=== PATIENT | male | born 1950 | race Caucasian/White ===

== ENCOUNTER 2017-03-04 07:41 | Emergency (ER) | payer MEDICARE, BC ==
[2017-03-04] MEDS ORDERED: Ketorolac 30 MG/ML SDV IVPUSH ONE (08:21)
--- NOTE | 2017-03-04 08:21 | EDM.PDOC ---
ED HPI GENERAL MEDICAL PROBLEM - General Chief Complaint: Back Pain or Injury Stated Complaint: BACK PAIN Time Seen by Provider: 03/04/17 08:15 Source of Information: Reports: Patient History Limitations: Reports: No Limitations - History of Present Illness INITIAL COMMENTS - FREE TEXT/NARRATIVE: This 66 yo male patient reports to the ED with mid back pain. The patient reports his pain started 2 days ago, but got much worse over the past 12 hours. The patient reports he has taken Aleve this morning with little to no relief. The patient reports he has been told that he has a bad vertebra in the past, but has not had anything done with it. The patient reports he lifts heavy objects at work and is required to bend over frequently which has increased the pain. 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 Middle Back Pain Score (Numeric/FACES): 10 - Related Data Allergies Allergy/AdvReac Type Severity Reaction Status Date / Time No Known Allergies Allergy Verified 04/17/16 12:25 Home Meds: Home Meds Calcium Carbonate/Vitamin D3 [Calcium 600-Vit D3 500 Softgel] 1 cap PO DAILY [History] Metoprolol Succinate 50 mg PO DAILY 06/11/16 [History] Potassium Chloride 10 meq PO DAILY 06/11/16 [History] Triamterene/Hydrochlorothiazid [Triamterene-HCTZ 37.5-25 MG] 1 cap PO DAILY [History] Past Medical History HEENT History: Reports: Other (See Below) Other HEENT History: hx facial abscess Cardiovascular History: Reports: Hypertension Musculoskeletal History: Reports: Other (See Below) Other Musculoskeletal History: hx "bad vertebra" - Past Surgical History HEENT Surgical History: Reports: Other (See Below) Other HEENT Surgeries/Procedures: surgery for facial abscess june 2016 Social & Family History - Family History Family Medical History: Noncontributory - Tobacco Use Smoking Status *Q: Current Every Day Smoker Years of Tobacco use: 45 Packs/Tins Daily: 1 Used Tobacco, but Quit: No - Caffeine Use Caffeine Use: Reports: Coffee - Recreational Drug Use Recreational Drug Use: Yes Drug Use in Last 12 Months: Yes Recreational Drug Type: Reports: Marijuana/Hashish Recreational Drug Use Frequency: Weekly Recreational Drug Last Use: t-3 ED ROS GENERAL - Review of Systems Review Of Systems: ROS reveals no pertinent complaints other than HPI. ED EXAM,LOWER BACK PAIN/INJURY - Physical Exam Exam: See Below Exam Limited By: No Limitations General Appearance: Alert, WD/WN, Severe Distress Eye Exam: Bilateral Eye: EOMI, Normal Inspection Ears: Normal External Exam, Normal Canal, Hearing Grossly Normal, Normal TMs Nose: Normal Inspection, Normal Mucosa, No Blood Throat/Mouth: Normal Inspection, Normal Lips, Normal Teeth, Normal Gums, Normal Oropharynx, Normal Voice, No Airway Compromise Head: Atraumatic, Normocephalic Neck: Normal Inspection, Supple, Non-Tender, Full Range of Motion Respiratory/Chest: No Respiratory Distress, Lungs Clear, Normal Breath Sounds, No Accessory Muscle Use, Chest Non-Tender Cardiovascular: Normal Peripheral Pulses, Regular Rate, Rhythm, No Edema, No Gallop, No JVD, No Murmur, No Rub GI/Abdominal: Normal Bowel Sounds, Soft, Non-Tender, No Organomegaly, No Distention, No Abnormal Bruit, No Mass (Male) Exam: Deferred Rectal (Males) Exam: Deferred Back Exam: Normal Inspection, Full Range of Motion, NT Extremities: Normal Inspection, Normal Range of Motion, Non-Tender, No Pedal Edema, Normal Capillary Refill Neurological: Alert, Normal Mood/Affect, Normal Dorsiflexion, CN II-XII Intact, Normal Plantar Flexion, Normal Gait, Normal Reflexes, No Motor/Sensory Deficits , Oriented x 3 Psychiatric: Normal Affect, Normal Mood Skin Exam: Warm, Dry, Intact, Normal Color, No Rash Lymphatic: No Adenopathy Course - Vital Signs Last Recorded V/S: Last Vital Signs Temp 36.6 C 03/04/17 07:59 Pulse 62 03/04/17 07:59 Resp 16 03/04/17 07:59 BP 181/82 H 03/04/17 07:59 Pulse Ox 99 03/04/17 07:59 - Orders/Labs/Meds Orders: Active Orders 24 hr Category Date Time Status Orphenadrine [Norflex] Med 03/04/17 08:30 Active 60 mg IM Q12H Medication Orders Orphenadrine Citrate (Norflex) 60 mg IM Q12H TOO Last Admin: 03/04/17 08:29 Dose: 60 mg Meds: Medications Generic Name Dose Route Start Last Admin Trade Name Rubin PRN Reason Stop Dose Admin Orphenadrine Citrate 60 mg 03/04/17 08:30 03/04/17 08:29 Norflex IM 60 mg Q12H TOO Administration Discontinued Medications Generic Name Dose Route Start Last Admin Trade Name Rubin PRN Reason Stop Dose Admin Hydromorphone HCl 0.5 mg 03/04/17 08:45 03/04/17 08:56 Dilaudid IVPUSH 03/04/17 08:46 0.5 mg ONETIME ONE Administration Hydromorphone HCl 0.5 mg 03/04/17 09:08 Dilaudid IVPUSH 03/04/17 09:09 ONETIME ONE Ketorolac Tromethamine 30 mg 03/04/17 08:21 03/04/17 08:31 Toradol IVPUSH 03/04/17 08:22 30 mg ONETIME ONE Administration Departure - Departure Time of Disposition: 09:30 Disposition: Home, Self-Care 01 Condition: Fair Clinical Impression: Non-traumatic compression fracture of T6 thoracic vertebra Qualifiers: Encounter type: initial encounter Qualified Code(s): M48.54XA - Collapsed vertebra, not elsewhere classified, thoracic region, initial encounter for fracture - Discharge Information Instructions: Spinal Compression Fracture Forms: ED Department Discharge Care Plan Goals: The patient was advised of the examination and x-ray results during the visit. The patient was given an IV dose of Toradol, 2 IV doses of Dilaudid and an IM dose of Norflex while in the ED. The patient was discharged with a script for [place] (10/325) #16 to take 1 by mouth every 6 hours as needed for pain. The patient should follow-up with his primary care facility in the next couple of days for continued evaluation and management. If the patient has any additional symptoms or concerns, the patient should visit his primary care facility or return to the emergency department. - My Orders Last 24 Hours: My Active Orders 03/04/17 08:30 Orphenadrine [Norflex] 60 mg IM Q12H - Assessment/Plan Last 24 Hours: My Active Orders 03/04/17 08:30 Orphenadrine [Norflex] 60 mg IM Q12H
[2017-03-04] MEDS ORDERED: HYDROmorphone 1 MG/ML Syringe IVPUSH ONE ×2 (08:45→09:08)
[2017-03-04 09:30] VITALS: BP 168/80
== END 2017-03-04 09:54 | disposition home or self-care (01) ==
LOC: DL.ED 07:41
DX: M48.54XA Collapsed vertebra, not elsewhere classified, thoracic region, initial encounter for fracture (principal); I10 Essential (primary) hypertension; F17.210 Nicotine dependence, cigarettes, uncomplicated; Z79.899 Other long term (current) drug therapy
CPT/HCPCS: 72070; 72100; 96372; 96374; 96375; 99283; J1170; J1885; J2360

== ENCOUNTER 2017-05-30 14:46 | Emergency (ER) | payer MEDICARE, BC ==
[2017-05-30 15:32] VITALS: BP 129/74
[2017-05-30] MEDS ORDERED: Oxymetazoline 0.05% Nasal Spray 15 ML Bottle NAS ONE (15:43)
--- NOTE | 2017-05-30 15:52 | EDM.PDOC ---
ED HPI GENERAL MEDICAL PROBLEM - General Chief Complaint: ENT Problem Stated Complaint: NOSE BLEEDS GRICELDA PHILLIPS, [id number] Time Seen by Provider: 05/30/17 15:40 Source of Information: Reports: Patient History Limitations: Reports: No Limitations - History of Present Illness INITIAL COMMENTS - FREE TEXT/NARRATIVE: This 66 yo male patient reports to the ED with a nose bleed. The patient report this is his 3rd day of frequent nose bleeds. The patient reports the bleeding stopped just prior to coming to the ED. The patient reports he has been blowing his nose and had clots of blood come out. The patient reports his house is very dry. Onset Date: 05/28/17 Duration: Intermittent Location: Reports: Face Quality: Reports: Dull Severity: Mild Improves with: Reports: None Worsens with: Reports: None Associated Symptoms: Reports: No Other Symptoms Back Pain Score (Numeric/FACES): 3 - Related Data Allergies Allergy/AdvReac Type Severity Reaction Status Date / Time No Known Allergies Allergy Verified 04/17/16 12:25 Home Meds: Home Meds Calcium Carbonate/Vitamin D3 [Calcium 600-Vit D3 500 Softgel] 1 cap PO DAILY [History] Metoprolol Succinate 50 mg PO DAILY 06/11/16 [History] Potassium Chloride 10 meq PO DAILY 06/11/16 [History] Triamterene/Hydrochlorothiazid [Triamterene-HCTZ 37.5-25 MG] 1 cap PO DAILY [History] Aspirin [Ecotrin] 81 mg PO DAILY 05/30/17 [History] Multivitamin [Multivitamins] 1 tab PO DAILY 05/30/17 [History] atorvaSTATin [Lipitor] 05/30/17 [History] oxyCODONE 5 mg PO Q6H 05/30/17 [History] Past Medical History HEENT History: Reports: Other (See Below) Other HEENT History: hx facial abscess Cardiovascular History: Reports: Hypertension Musculoskeletal History: Reports: Other (See Below) Other Musculoskeletal History: hx "bad vertebra" - Past Surgical History HEENT Surgical History: Reports: Other (See Below) Other HEENT Surgeries/Procedures: surgery for facial abscess june 2016 Social & Family History - Family History Family Medical History: Noncontributory - Tobacco Use Smoking Status *Q: Current Every Day Smoker Years of Tobacco use: 45 Packs/Tins Daily: 1 Used Tobacco, but Quit: No - Caffeine Use Caffeine Use: Reports: Coffee - Recreational Drug Use Recreational Drug Use: Yes Drug Use in Last 12 Months: Yes Recreational Drug Type: Reports: Marijuana/Hashish Recreational Drug Use Frequency: Weekly Recreational Drug Last Use: t-3 ED ROS ENT - Review of Systems Review Of Systems: ROS reveals no pertinent complaints other than HPI. ED EXAM, ENT - Physical Exam Exam: See Below Exam Limited By: No Limitations General Appearance: Alert, WD/WN, No Apparent Distress Eye Exam: Bilateral Eye: EOMI, Normal Inspection, PERRL Ears: Normal External Exam, Normal Canal, Hearing Grossly Normal, Normal TMs Nose: Normal Inspection, Normal Mucousa, Dried Blood, Other (no active bleeding) Mouth/Throat: Normal Inspection, Normal Gums, Normal Lips, Normal Oropharynx, Normal Teeth Head: Atraumatic, Normocephalic Neck: Normal Inspection, Supple, Non-Tender, Full Range of Motion Respiratory/Chest: No Respiratory Distress, Lungs Clear, Normal Breath Sounds, No Accessory Muscle Use, Chest Non-Tender Cardiovascular: Normal Peripheral Pulses, Regular Rate, Rhythm, No Edema, No Gallop, No JVD, No Murmur, No Rub GI/Abdominal: Normal Bowel Sounds, Soft, Non-Tender, No Organomegaly, No Distention, No Abnormal Bruit, No Mass (Male) Exam: Deferred Rectal (Males) Exam: Deferred Back: Normal Inspection, Full Range of Motion Extremities: Normal Inspection, Normal Range of Motion, Non-Tender, No Pedal Edema, Normal Capillary Refill Neurological: Alert, Oriented, CN II-XII Intact, Normal Cognition, Normal Gait, Normal Reflexes, No Motor/Sensory Deficits Psychiatric: Normal Affect, Normal Mood Skin: Warm, Dry, Intact, Normal Color, No Rash Lymphatic: No Adenopathy Course - Vital Signs Last Recorded V/S: Last Vital Signs Temp 36.4 C 05/30/17 15:31 Pulse 64 05/30/17 15:31 Resp 16 05/30/17 15:31 BP 129/74 05/30/17 15:31 Pulse Ox 99 05/30/17 15:31 - Orders/Labs/Meds Orders: Active Orders 24 hr Category Date Time Status Oxymetazoline [Afrin Original 0.05% Nasal Norris] Med 05/30/17 15:43 Once 1 ml MIKE ONETIME ONE Medication Orders Oxymetazoline HCl (Afrin Original 0.05% Nasal Norris) 1 ml MIKE ONETIME ONE Stop: 05/30/17 15:44 Meds: Medications Generic Name Dose Route Start Last Admin Trade Name Rubin PRN Reason Stop Dose Admin Oxymetazoline HCl 1 ml 05/30/17 15:43 Afrin Original 0.05% Nasal Norris MIKE 05/30/17 15:44 ONETIME ONE Departure - Departure Time of Disposition: 15:49 Disposition: Home, Self-Care 01 Condition: Fair Clinical Impression: Epistaxis - Discharge Information Instructions: Nosebleed, [id number] Referrals: Amaya Franco PA [Primary Care Provider] - Care Plan Goals: The patient was advised of the examination results during the visit. The patient was given 2 sprays of Afrin in each nostril while in the ED. The patient was sent home with the bottle and instructed to use 2 sprays in each nostril 3 times per day as needed. The patient was also encouraged to use a humidifier as well as place a small amount of Aquaphor on a Q-tip 2 times a day applied to each internal nostril. If the patient has any additional symptoms or concerns, the patient should follow-up with his primary care facility or return to the ED. - My Orders Last 24 Hours: My Active Orders 05/30/17 15:43 Oxymetazoline [Afrin Original 0.05% Nasal Norris] 1 ml MIKE ONETIME ONE - Assessment/Plan Last 24 Hours: My Active Orders 05/30/17 15:43 Oxymetazoline [Afrin Original 0.05% Nasal Norris] 1 ml MIKE ONETIME ONE
== END 2017-05-30 15:59 | disposition home or self-care (01) ==
LOC: DL.ED 14:46
DX: R04.0 Epistaxis (principal); F17.210 Nicotine dependence, cigarettes, uncomplicated; I10 Essential (primary) hypertension; Z79.82 Long term (current) use of aspirin; Z79.899 Other long term (current) drug therapy
CPT/HCPCS: 99283; A9270; 99282

== ENCOUNTER 2020-10-19 06:17 | Day surgery (SDC) | payer MEDICARE, BC ==
[~2020-10-19 06:17] MED LIST: Dextrose 5%-0.45% NaCl 1,000 ML IV SCH; Midazolam 1 MG/ML 2 ML SDV ONE; Sodium Chloride 0.9% 10 ML Syringe FLUSH PRN; fentaNYL 100 MCG/2 ML SDV ONE
[2020-10-19] MEDS ORDERED: Midazolam 1 MG/ML 2 ML SDV IV ONE ×7 (06:18→07:37)
[2020-10-19] MEDS ORDERED: fentaNYL 100 MCG/2 ML SDV IV ONE ×3 (06:18→07:26)
[2020-10-19 10:32] VITALS: BP 126/71; PULSE 49
--- NOTE | 2020-10-19 14:17 | OR ---
DATE: 10/19/2020 PROCEDURE: Total colonoscopy. INSTRUMENT USED: CF-[id number] Olympus video colonoscope. PREMEDICATIONS: Fentanyl 100 mcg intravenous, Versed 4 mg intravenous. The procedure was done under pulse oximetry, BP recording, and monitoring manager. INDICATION: Screening colonoscopic examination is done for detection of any polypoid lesions and removal, endoscopic hemostasis therapy if needed. DESCRIPTION OF PROCEDURE: Initial rectal exam was unremarkable. Rigid anoscopy was normal. The colonoscope was passed with ease. The sigmoid colon was found to be a bit straight and the scope was passed with relative ease up to the ileocecal area. Photographs were taken of the normal-appearing cecum, identified by landmarks of appendiceal orifice and double-bulged ileocecal folds. No bleeding was noted from any of the visualized areas at the commencement of the examination. The bowel preparation was found to be adequate, [place] scale 2 in all the regions, total score 6. No stricture. No vascular ectasia. No large isolated ulcerations seen. No evidence of diffuse inflammatory bowel disease in the form of friability, contact bleeding, or ulcerations. No polyp or tumor mass identified. Probing the proximal sides of folds and flexures using adequate distention and clearing up the stool material, withdrawal of the scope was made, cecum to rectum time over 6 minutes. No bleeding was noted from any of the visualized areas at the completion of examination. IMPRESSION: Normal study. The patient tolerated the procedure well. [facility] /[id number]
== END 2020-10-19 09:52 | disposition home or self-care (01) ==
LOC: DL.ENDO 06:17
PROVIDERS: ATTEND Internal Medicine Gastroenterology
DX: Z12.11 Encounter for screening for malignant neoplasm of colon (principal); I10 Essential (primary) hypertension; E78.1 Pure hyperglyceridemia; I73.9 Peripheral vascular disease, unspecified; M19.90 Unspecified osteoarthritis, unspecified site; M48.54XA Collapsed vertebra, not elsewhere classified, thoracic region, initial encounter for fracture; F17.210 Nicotine dependence, cigarettes, uncomplicated; Z98.890 Other specified postprocedural states
CPT/HCPCS: J2250; J3010; J7042

== ENCOUNTER 2021-01-24 06:56 | Day surgery (SDC) | payer MEDICARE, BC ==
[2021-01-24] MEDS ORDERED: Dexamethasone 4 MG/ML SDV IV ONE (06:57)
[2021-01-24] MEDS ORDERED: Midazolam 1 MG/ML 2 ML SDV IV ONE (06:57)
[2021-01-24] MEDS ORDERED: Sodium Chloride 0.9% 10 ML Syringe IV ONE (06:57)
[2021-01-24] MEDS ORDERED: Acetaminophen 325 MG Tab PO PRN (07:00)
[2021-01-24] MEDS ORDERED: Acetaminophen/Codeine 300-30 MG Tab PO PRN (07:00)
[2021-01-24] MEDS ORDERED: Ondansetron 4 MG/2 ML SDV IVPUSH PRN (07:00)
[2021-01-24] MEDS: Sodium Chloride 0.9% 10 ML Syringe FLUSH PRN (07:27)
[2021-01-24] MEDS: Proparacaine 0.5% Ophth Soln 15 ML Bottle EYELF ONE (07:28)
[2021-01-24] MEDS: Povidone-Iodine 5% Sterile Ophth Soln 30 ML Bottle EYELF ONE ×2 (07:29→08:11)
[2021-01-24] MEDS: Moxifloxacin 0.5% Ophth Soln 3 ML Bottle EYELF ONE (07:30)
[2021-01-24] MEDS: Tropicamide 1% Ophth Soln 15 ML Bottle EYELF ONE (07:30)
[2021-01-24] MEDS: Phenylephrine 10% Ophth Soln 5 ML Bot EYELF ONE (07:31)
[2021-01-24] MEDS: Timolol Maleate 0.5% Ophth Soln 5 ML Bottle EYELF ONE (07:31)
[2021-01-24] MEDS: Cataract Ophth Solution EYELF ONE (07:32)
[2021-01-24] MEDS: Lidocaine 1% 30 ML SDV ONE (08:11)
[2021-01-24] MEDS: Apraclonidine 0.5% Ophth Soln 5 ML Bot EYELF ONE (08:11)
[2021-01-24] MEDS: Tetracaine HCl/PF 0.5% 4 ML Bottle EYELF ONE (08:11)
[2021-01-24] MEDS: Diclofenac Sodium 0.1% Ophth Soln 5 ML Bottle EYELF ONE (08:12)
[2021-01-24] MEDS: Chondroitin Sulfate/Hyaluronate Sodium Ophth Inj 0.75 ML Syringe EYELF ONE (08:12)
[2021-01-24] MEDS: Vancomycin 500 MG SDV EYELF ONE (08:12)
[2021-01-24] MEDS: Dexamethasone/Neomycin/Polymyxin B Ophth Oint 3.5 GM Tube EYELF ONE (08:12)
[2021-01-24] MEDS: Balanced Salt Solution Ophth Irrig 500 ML Bottle IOCULAR ONE (08:12)
--- NOTE | 2021-01-24 10:31 | OR ---
DATE: 01/24/2021 PREOPERATIVE DIAGNOSIS: Visually significant mixed cataract, left eye. POSTOPERATIVE DIAGNOSIS: Visually significant mixed cataract, left eye. PROCEDURE: Extracapsular cataract extraction with intraocular lens implant, left eye. ANESTHESIA: Topical/local MAC. COMPLICATIONS: None. INDICATION: Mr. Betancur was seen in the clinic. He has difficulty seeing television and has noticed a slow progressive change, difficulty seeing small print. Examination reveals visually significant mixed cataract. He did see his regular adult school counselor, Dr. Hess. Dr. Hess was not able to improve his vision and meet his needs with a change in glasses. I explained options, offered cataract surgery, and I explained risks, including, but not limited to, infection, retinal detachment, loss of vision, need for additional surgery, and risks associated with anesthesia. We discussed implant options. He has requested a monofocal implant. He understands that he will likely need glasses following surgery for some activities. OPERATIVE DESCRIPTION: After informed consent was obtained and the risks, benefits, and alternatives were explained, the patient was brought to the operative suite and topical anesthesia was administered. The patient was then prepped and draped in the sterile fashion and attention was placed on the left eye. A sterile lid speculum was placed into the left eye to allow operative exposure. A full-thickness paracentesis was made in the temporal portion of the operative eye. Preservative-free lidocaine 0.1 mL was injected into the anterior chamber followed by viscoelastic. A full-thickness corneal incision was then made into the anterior chamber. A bent needle cystotome was used to create a small jeremy in the anterior capsule. The capsulorrhexis forceps was then used to create a 360-degree curvilinear capsulorrhexis. The nucleus was then removed using a phacoemulsification handpiece and the remaining cortical material was then removed with irrigation and aspiration handpiece. Following removal of the cortical material, the capsular bag was then inspected and noted to be free of any holes or tears. Viscoelastic was then injected into the capsular bag and the intraocular lens was inserted into the capsular bag. The viscoelastic material was then removed from both the anterior and posterior chambers and from behind the IOL. The lens and capsular bag were then reinspected. The IOL was well centered and the capsular bag intact. The wound and paracentesis sites were inspected and hydrated with balanced saline solution. Both were found to be self- sealing. The intraocular pressure was assessed digitally and found to be within normal range. A good red reflex was noted at the completion of the procedure. No complications occurred during the operation. At the completion of the procedure, Maxitrol, Voltaren, and Iopidine drops were placed into the operative eye. A sterile eye shield was placed over the operative eye and the patient was transported to the postoperative recovery area having tolerated the procedure well. Postoperative instructions were given along with a postoperative appointment. The patient was advised to call with any questions or concerns. [facility] /[id number]
[2021-01-24 13:26] VITALS: BP 128/63; PULSE 54
== END 2021-01-24 09:31 | disposition home or self-care (01) ==
LOC: DL.SDS 06:56
PROVIDERS: ATTEND Ophthalmology
DX: H26.8 Other specified cataract (principal); I10 Essential (primary) hypertension; E78.1 Pure hyperglyceridemia; F17.210 Nicotine dependence, cigarettes, uncomplicated; Z79.899 Other long term (current) drug therapy; E78.5 Hyperlipidemia, unspecified; R73.03 Prediabetes
CPT/HCPCS: 00142; A9270-GY; J1100; J2250; J3370; V2632

== ENCOUNTER 2021-01-31 07:24 | Day surgery (SDC) | payer MEDICARE, BC ==
[2021-01-31] MEDS ORDERED: Midazolam 1 MG/ML 2 ML SDV IV ONE (07:25)
[2021-01-31] MEDS ORDERED: Sodium Chloride 0.9% 10 ML Syringe IV ONE (07:25)
[2021-01-31] MEDS ORDERED: Dexamethasone 4 MG/ML SDV IV ONE (07:25)
[2021-01-31] MEDS ORDERED: Phenylephrine 10% Ophth Soln 5 ML Bot EYERT ONE (07:30)
[2021-01-31] MEDS ORDERED: Sodium Chloride 0.9% 10 ML Syringe FLUSH PRN (07:30)
[2021-01-31] MEDS ORDERED: Povidone-Iodine 5% Sterile Ophth Soln 30 ML Bottle EYERT ONE ×2 (07:30→08:49)
[2021-01-31] MEDS ORDERED: Tropicamide 1% Ophth Soln 15 ML Bottle EYERT ONE (07:30)
[2021-01-31] MEDS ORDERED: Ondansetron 4 MG/2 ML SDV IVPUSH PRN (07:30)
[2021-01-31] MEDS ORDERED: Acetaminophen/Codeine 300-30 MG Tab PO PRN (07:30)
[2021-01-31] MEDS ORDERED: Cataract Ophth Solution EYERT ONE (07:30)
[2021-01-31] MEDS ORDERED: Moxifloxacin 0.5% Ophth Soln 3 ML Bottle EYERT ONE (07:30)
[2021-01-31] MEDS ORDERED: Acetaminophen 325 MG Tab PO PRN (07:30)
[2021-01-31] MEDS ORDERED: Timolol Maleate 0.5% Ophth Soln 5 ML Bottle EYERT ONE (07:30)
[2021-01-31] MEDS ORDERED: Proparacaine 0.5% Ophth Soln 15 ML Bottle EYERT ONE (07:30)
[2021-01-31] MEDS ORDERED: Lidocaine 1% 30 ML SDV ONE (08:49)
[2021-01-31] MEDS ORDERED: Tetracaine HCl/PF 0.5% 4 ML Bottle EYERT ONE (08:49)
[2021-01-31] MEDS ORDERED: Diclofenac Sodium 0.1% Ophth Soln 5 ML Bottle EYERT ONE (08:49)
[2021-01-31] MEDS ORDERED: Apraclonidine 0.5% Ophth Soln 5 ML Bot EYERT ONE (08:49)
[2021-01-31] MEDS ORDERED: Vancomycin 500 MG SDV EYERT ONE (08:50)
[2021-01-31] MEDS ORDERED: Balanced Salt Solution Ophth Irrig 500 ML Bottle IOCULAR ONE (08:50)
[2021-01-31] MEDS ORDERED: Chondroitin Sulfate/Hyaluronate Sodium Ophth Inj 0.75 ML Syringe EYERT ONE (08:50)
[2021-01-31] MEDS ORDERED: Dexamethasone/Neomycin/Polymyxin B Ophth Oint 3.5 GM Tube EYERT ONE (08:50)
[2021-01-31 13:03] VITALS: BP 136/65; PULSE 50
--- NOTE | 2021-01-31 14:07 | OR ---
DATE: 01/31/2021 PREOPERATIVE DIAGNOSIS: Visually significant mixed cataract, right eye. POSTOPERATIVE DIAGNOSIS: Visually significant mixed cataract, right eye. PROCEDURE: Extracapsular cataract extraction with intraocular lens implant, right eye. ANESTHESIA: Topical/local MAC. COMPLICATIONS: None. INDICATION: Mr. Betancur was seen in the clinic. He was referred by Dr. Hess. He has complained of blurred vision, difficulty seeing television, and a progressive change in vision over the last year. He saw his regular store keeper, Dr. Hess, and Dr. Hess was not able to improve his vision with a change in glasses. I explained options, offered cataract surgery, and I explained risks, including, but not limited to, infection; retinal detachment; loss of vision; need for additional surgeries; and risks associated with anesthesia. We discussed implant options. He has requested a monofocal implant. He does have significant pre-existing astigmatism and understands that his vision will be limited without glasses. OPERATIVE DESCRIPTION: After informed consent was obtained and the risks, benefits, and alternatives were explained, the patient was brought to the operative suite and topical anesthesia was administered. The patient was then prepped and draped in the sterile fashion and attention was placed on the right eye. A sterile lid speculum was placed into the right eye to allow operative exposure. A full-thickness paracentesis was made in the temporal portion of the operative eye. Preservative-free lidocaine 0.1 mL was injected into the anterior chamber followed by viscoelastic. A full-thickness corneal incision was then made into the anterior chamber. A bent needle cystotome was used to create a small jeremy in the anterior capsule. The capsulorrhexis forceps was then used to create a 360-degree curvilinear capsulorrhexis. The nucleus was then removed using a phacoemulsification handpiece and the remaining cortical material was then removed with irrigation and aspiration handpiece. Following removal of the cortical material, the capsular bag was then inspected and noted to be free of any holes or tears. Viscoelastic was then injected into the capsular bag and the intraocular lens was inserted into the capsular bag. The viscoelastic material was then removed from both the anterior and posterior chambers and from behind the IOL. The lens and capsular bag were then reinspected. The IOL was well centered and the capsular bag intact. The wound and paracentesis sites were inspected and hydrated with balanced saline solution. Both were found to be self- sealing. The intraocular pressure was assessed digitally and found to be within normal range. A good red reflex was noted at the completion of the procedure. No complications occurred during the operation. At the completion of the procedure, Maxitrol, Voltaren, and Iopidine drops were placed into the operative eye. A sterile eye shield was placed over the operative eye and the patient was transported to the postoperative recovery area having tolerated the procedure well. Postoperative instructions were given along with a postoperative appointment. The patient was advised to call with any questions or concerns. [facility] /[id number]
== END 2021-01-31 09:59 | disposition home or self-care (01) ==
LOC: DL.SDS 07:24
PROVIDERS: ATTEND Ophthalmology
DX: H26.8 Other specified cataract (principal); I10 Essential (primary) hypertension; E78.5 Hyperlipidemia, unspecified; R73.03 Prediabetes; L98.9 Disorder of the skin and subcutaneous tissue, unspecified; F17.210 Nicotine dependence, cigarettes, uncomplicated; Z79.899 Other long term (current) drug therapy
CPT/HCPCS: 00142; A9270-GY; J1100; J2250; J3370; V2632